=== PATIENT | female | born 1980 | race Caucasian/White ===

== ENCOUNTER → 2016-11-21 | Outpatient (REF) | payer MEDICARE, MEDICAID ==
[~2016-11-21] MED LIST: ACHYD1T PO; ALPR.5T PO; APIX5TAB PO; AZIT500T4 PO; CEPH-331 PO; CEPH500C PO; CHOL400T PO; CITA40TA19 PO; CITA40TA5 PO; DIPH25TA65 PO; FAMO10VI IV; FRSM40T PO; FURO-124 PO; HYDR473S17 PO; IBUP200C8 PO; MELO-249 PO; MELO7.5T PO; MULT1CAP27 PO; NALT1TAB PO; OXYC1TAB6 PO; OXYC1TAB87 PO; POTA20TA7 PO; PROP120C3 PO; PROP20TA23 PO; SMTR50T PO; TIZA4CAP6 PO; TRM50T PO; ZLP10T PO; ZOLP10TA PO
[2016-11-21 11:55] LABS: MEAN CORPUSCULAR VOLUME 90 FL (80-100); PLATELET COUNT 298 10^3uL (150-450); WHITE BLOOD COUNT 10.99 10^3uL (4.0-11.0)
[2016-11-21 11:59] LABS: MEAN CORPUSCULAR HEMOGLOBIN 26.5 PG (26.0-34.0); MEAN CORPUSCULAR HGB CONC 29.3 g/dL (31.0-37.0)
[2016-11-21 12:06] LABS: ALBUMIN 3.3 g/dL (3.4-5.0); ANION GAP 14.5 MEQ/L (3-15); CALCULATED IONIZED CALCIUM 4.3 mg/dL (3.8-4.6); TOTAL PROTEIN 6.2 g/dL (6.4-8.5)
[2016-11-21 12:09] LABS: BAND NEUTROPHILS % 0 % (0-6); EOSINOPHILS % 4 % (0-4); LYMPHOCYTES # 1.3 #; MONOCYTES # 0.3 #; MONOCYTES % 3 % (3-11); RBC MORPH NORMAL (NORMAL); SEGMENTED NEUTROPHILS % 77 % (51-67); TOTAL CELLS COUNTED 100
== END ==
LOC: LAB 11:35
PROVIDERS: ATTEND Family Medicine
DX: R11.0 Nausea (principal)
CPT/HCPCS: 80053; 82150; 83690; 85007; 85027

== ENCOUNTER → 2017-01-18 | Outpatient (REF) | payer MEDICARE, MEDICAID ==
[2017-01-18 11:36] LABS: ANION GAP 11.5 MEQ/L (3-15)
== END ==
LOC: LAB 11:14
PROVIDERS: ATTEND Family Medicine
DX: R60.0 Localized edema (principal)
CPT/HCPCS: 80048; 83880

== ENCOUNTER → 2017-01-25 | Outpatient (REF) | payer MEDICARE, MEDICAID ==
[2017-01-25 12:25] LABS: ANION GAP 13.3 MEQ/L (3-15)
== END ==
LOC: LAB 11:41
PROVIDERS: ATTEND Family Medicine
DX: R60.9 Edema, unspecified (principal)
CPT/HCPCS: 80048; 83880

== ENCOUNTER → 2017-02-01 | Outpatient (REF) | payer MEDICARE, MEDICAID ==
[2017-02-01 13:15] LABS: MEAN CORPUSCULAR VOLUME 92 FL (80-100); MEAN PLATELET VOLUME 9.4 FL (6.0-9.5); PLATELET COUNT 365 10^3uL (150-450); WHITE BLOOD COUNT 16.94 10^3uL (4.0-11.0)
[2017-02-01 13:17] LABS: MEAN CORPUSCULAR HEMOGLOBIN 25.7 PG (26.0-34.0); MEAN CORPUSCULAR HGB CONC 27.9 g/dL (31.0-37.0)
[2017-02-01 14:01] LABS: BAND NEUTROPHILS % 0 % (0-6); EOSINOPHILS % 4 % (0-4); LYMPHOCYTES # 1.7 #; MONOCYTES # 1.3 #; MONOCYTES % 8 % (3-11); RBC MORPH SEE REFERENCE (NORMAL); SEGMENTED NEUTROPHILS % 78 % (51-67); TOTAL CELLS COUNTED 100
[2017-02-01 14:02] LABS: ANISOCYTOSIS SLIGHT; HYPOCHROMASIA SLIGHT; STOMATOCYTES SLIGHT
[2017-02-01 14:13] LABS: ANION GAP 15.9 MEQ/L (3-15)
== END ==
LOC: LAB 12:51
PROVIDERS: ATTEND Family Medicine
DX: L03.90 Cellulitis, unspecified (principal)
CPT/HCPCS: 80048; 83880; 85025; 86140

== ENCOUNTER → 2017-02-04 | Outpatient (CLI) | payer MEDICARE, MEDICAID | LOC: EMS 11:05 | PROVIDERS: ATTEND Internal Medicine | DX: R79.89 Other specified abnormal findings of blood chemistry (principal) ==

== ENCOUNTER → 2017-02-12 | Outpatient (CLI) | payer MEDICARE, MEDICAID | LOC: EMS 08:40 | PROVIDERS: ATTEND Emergency Medicine | DX: L03.116 Cellulitis of left lower limb (principal); L03.115 Cellulitis of right lower limb ==

== ENCOUNTER → 2017-02-15 | Outpatient (REF) | payer MEDICARE, MEDICAID ==
[2017-02-15 14:05] LABS: BASOPHILS % (AUTO) 1 % (0-2); EOSINOPHILS # (AUTO) 0.7 10^3uL; EOSINOPHILS % (AUTO) 6 % (0-4); LYMPHOCYTES # (AUTO) 1.3 X10^3; MEAN CORPUSCULAR VOLUME 89 FL (80-100); MONOCYTES # (AUTO) 0.7 X10^3; MONOCYTES % (AUTO) 6 % (3-11); NEUTROPHILS # (AUTO) 7.7 X10^3; NEUTROPHILS % (AUTO) 73 % (51-67); PLATELET COUNT 241 10^3uL (150-450); WHITE BLOOD COUNT 10.48 10^3uL (4.0-11.0)
[2017-02-15 14:43] LABS: MEAN CORPUSCULAR HEMOGLOBIN 25.5 PG (26.0-34.0)
[2017-02-15 14:44] LABS: MEAN CORPUSCULAR HGB CONC 28.6 g/dL (31.0-37.0)
== END ==
LOC: LAB 13:23
PROVIDERS: ATTEND Family Medicine
DX: L03.90 Cellulitis, unspecified (principal)
CPT/HCPCS: 80048; 85025; 86140

== ENCOUNTER → 2017-03-12 | Outpatient (REF) | payer MEDICARE, MEDICAID | LOC: LAB 11:20 | PROVIDERS: ATTEND Family Medicine | DX: E87.70 Fluid overload, unspecified (principal) | CPT/HCPCS: 80048 ==

== ENCOUNTER → 2017-03-14 | Outpatient (CLI) | payer MEDICARE, MEDICAID | LOC: EMS 12:27 | PROVIDERS: ATTEND Emergency Medicine | DX: R60.0 Localized edema (principal) ==

== ENCOUNTER → 2017-03-18 | Outpatient (CLI) | payer MEDICARE, MEDICAID | LOC: EMS 14:57 | PROVIDERS: ATTEND Internal Medicine | DX: E87.70 Fluid overload, unspecified (principal) ==

== ENCOUNTER → 2017-03-25 | Outpatient (REF) | payer MEDICARE, MEDICAID ==
[2017-03-25 10:23] LABS: ANION GAP 13.9 MEQ/L (3-15)
== END ==
LOC: LAB 09:56
PROVIDERS: ATTEND Internal Medicine Hematology & Oncology
DX: R60.9 Edema, unspecified (principal)
CPT/HCPCS: 80048; 83880

== ENCOUNTER → 2017-04-01 | Outpatient (REF) | payer MEDICARE, MEDICAID ==
[2017-04-01 10:35] LABS: ANION GAP 11.6 MEQ/L (3-15)
== END ==
LOC: LAB 10:09
PROVIDERS: ATTEND Family Medicine
DX: I50.41 Acute combined systolic (congestive) and diastolic (congestive) heart failure (principal)
CPT/HCPCS: 80048; 83880

== ENCOUNTER → 2017-04-08 | Outpatient (REF) | payer MEDICARE, MEDICAID ==
[2017-04-08 11:32] LABS: ANION GAP 10.6 MEQ/L (3-15)
== END ==
LOC: LAB 10:48
PROVIDERS: ATTEND Family Medicine
DX: R60.9 Edema, unspecified (principal)
CPT/HCPCS: 80048